=== PATIENT | male | born 1995 | race Caucasian/White ===

== ENCOUNTER → 2021-02-07 | Outpatient (REF) | payer OTHER ==
[2021-02-07 11:29] LABS: HEMATOCRIT 46.6 % (42.0-52.0); HEMOGLOBIN 15.5 g/dl (13.5-17.5); MEAN CORPUSCULAR HEMOGLOBIN 30.2 pg (27.0-33.0); MEAN CORPUSCULAR HGB CONC 33.3 g/dl (32.0-36.5); MEAN CORPUSCULAR VOLUME 90.7 fl (80.0-96.0); PLATELET COUNT, AUTOMATED 279 10^3/uL (150-450); RED BLOOD COUNT 5.14 10^6/uL (4.30-6.10)
[2021-02-07 12:20] LABS: ALBUMIN 3.9 GM/DL (3.2-5.2); ALT/SGPT 37 U/L (12-78); BILIRUBIN,TOTAL 0.5 MG/DL (0.2-1.0); BLOOD UREA NITROGEN 15 MG/DL (7-18); CALCIUM LEVEL 9.3 MG/DL (8.5-10.1); CARBON DIOXIDE LEVEL 31 MEQ/L (21-32); CHLORIDE LEVEL 108 MEQ/L (98-107); CHOLESTEROL LEVEL 183 MG/DL (<200); CHOLESTEROL RISK RATIO 4.066 (<5); CREATININE FOR GFR 1.06 MG/DL (0.70-1.30); GLOMERULAR FILTRATION RATE > 60.0 (>60); GLUCOSE, FASTING 95 MG/DL (70-100); HDL CHOLESTEROL 45 MG/DL (>40); LDL CHOLESTEROL 122 MG/DL (<100); NON-HDL-C 138 MG/DL; POTASSIUM SERUM 4.5 MEQ/L (3.5-5.1); SODIUM LEVEL 142 MEQ/L (136-145); TOTAL PROTEIN 7.5 GM/DL (6.4-8.2); TRIGLYCERIDES LEVEL 82 MG/DL (<150)
== END ==
LOC: M SFHCCLAY 08:23
PROVIDERS: ATTEND Family Medicine
DX: Z00.00 Encounter for general adult medical examination without abnormal findings (principal)

== ENCOUNTER → 2024-01-05 | Outpatient (REF) | payer OTHER ==
[2024-01-05 17:18] LABS: ALBUMIN 4.1 G/DL (3.2-5.2); ALKALINE PHOSPHATASE 94 U/L (46-116); ALT/SGPT 25 U/L (7.0-40); AST/SGOT 13 U/L (<34); BILIRUBIN,TOTAL 0.5 MG/DL (0.3-1.2); BLOOD UREA NITROGEN 15 MG/DL (9-23); CALCIUM LEVEL 9.9 MG/DL (8.5-10.1); CARBON DIOXIDE LEVEL 30 MMOL/L (20-31); CHLORIDE LEVEL 107 MMOL/L (98-107); CHOLESTEROL LEVEL 193 MG/DL (<200); CHOLESTEROL RISK RATIO 4.39 (<5); CREATININE FOR GFR 0.89 MG/DL (0.70-1.30); GLOMERULAR FILTRATION RATE > 60.0 (>60); GLUCOSE, FASTING 94 MG/DL (60-100); HDL CHOLESTEROL 43.9 MG/DL (>40); LDL CHOLESTEROL 132.1 MG/DL (<100); NON-HDL-C 149.1 MG/DL; POTASSIUM SERUM 4.1 MMOL/L (3.5-5.1); SODIUM LEVEL 142 MMOL/L (136-145); TOTAL PROTEIN 7.2 G/DL (5.7-8.2); TRIGLYCERIDES LEVEL 85 MG/DL (<150)
== END ==
LOC: M SFHCCLAY 10:09
PROVIDERS: ATTEND Physician Assistant
DX: Z00.00 Encounter for general adult medical examination without abnormal findings (principal)